=== PATIENT | male | born 1975 ===

== ENCOUNTER 2019-04-11 19:12 | Outpatient (REF) | payer OTHER, SELFPAY ==
[2019-04-11 20:13] LABS: Anion Gap 9.1 mmol/L (3-11); BUN 11 mg/dL (7-18); CO2 26.9 mmol/L (21.0-32.0); CREATININE 1.01 mg/dL (0.70-1.30); Calcium 8.6 mg/dL (8.5-10.1); Calculated LDL 190 mg/dL (<100); Chloride 103 mmol/L (98-107); Cholesterol 253 mg/dL (<200); Glucose 147 mg/dL (74-106); HDL Cholesterol 34 mg/dL (40-60); Sodium 139 mmol/L (136-145); Triglyceride 145 mg/dL (<150)
== END 2019-04-11 19:32 ==
LOC: NCHCN 19:12
PROVIDERS: PCP Physician Assistant; Visit Provider Nurse Practitioner Family
DX: I10 Essential (primary) hypertension (principal); E78.5 Hyperlipidemia, unspecified
CPT/HCPCS: 80048; 80061

== ENCOUNTER 2019-08-17 11:55 | Outpatient (REF) | payer OTHER, SELFPAY ==
[2019-08-17 20:46] LABS: ALT 35 U/L (16-63); AST 23 U/L (15-37); Creatine Kinase 205 U/L (39-308)
[2019-08-17 21:24] LABS: Calculated LDL 87 mg/dL (<100); Cholesterol 138 mg/dL (<200); HDL Cholesterol 32 mg/dL (40-60); Triglyceride 98 mg/dL (<150)
== END 2019-08-17 12:15 ==
LOC: NCHCN 11:55
PROVIDERS: PCP Physician Assistant; Visit Provider Nurse Practitioner Family
DX: E78.5 Hyperlipidemia, unspecified (principal); I10 Essential (primary) hypertension
CPT/HCPCS: 80061; 82550; 84450; 84460

== ENCOUNTER 2020-06-27 21:14 | Outpatient (REF) | payer SELFPAY ==
[2020-06-27 16:19] LABS: Hemoglobin A1C 6.6 % (<5.7)
[2020-06-27 16:22] LABS: ALT 34 U/L (16-63); AST 19 U/L (15-37); Alkaline Phosphatase 83 U/L (46-116); Anion Gap 9.8 mmol/L (3-11); BUN 15 mg/dL (7-18); Bilirubin, Total 0.5 mg/dL (0.2-1.0); CO2 28.2 mmol/L (21.0-32.0); CREATININE 1.2 mg/dL (0.70-1.30); Calcium 9.3 mg/dL (8.5-10.1); Chloride 104 mmol/L (98-107); Glucose 147 mg/dL (74-106); Sodium 142 mmol/L (136-145); Total Protein 7.4 g/dL (6.4-8.2)
== END 2020-06-27 21:15 | disposition home or self-care (01) ==
LOC: NCHCN 21:14
PROVIDERS: PCP Physician Assistant; Visit Provider Nurse Practitioner Family
DX: I10 Essential (primary) hypertension (principal); E11.9 Type 2 diabetes mellitus without complications
CPT/HCPCS: 80053; 83036

== ENCOUNTER 2021-05-22 10:59 | Outpatient (REF) | payer OTHER, SELFPAY ==
[2021-05-22 22:21] LABS: ALT 32 U/L (16-63); AST 18 U/L (15-37); Alkaline Phosphatase 101 U/L (46-116); Anion Gap 8.8 mmol/L (3-11); BUN 13 mg/dL (7-18); Bilirubin, Total 0.3 mg/dL (0.2-1.0); CO2 26.2 mmol/L (21.0-32.0); CREATININE 1.1 mg/dL (0.70-1.30); Calcium 8.9 mg/dL (8.5-10.1); Calculated LDL 197 mg/dL (<100); Chloride 105 mmol/L (98-107); Cholesterol 266 mg/dL (<200); Glucose 155 mg/dL (74-106); HDL Cholesterol 37 mg/dL (40-60); Potassium 4.3 mmol/L (3.5-5.1); Sodium 140 mmol/L (136-145); Total Protein 7.8 g/dL (6.4-8.2); Triglyceride 163 mg/dL (<150)
[2021-05-22 23:10] LABS: COMMENT (LAB VIEW ONLY) 255.36 mg/dL; Microalb ug/mg Crea 9.7 ug/mg Cr
== END 2021-05-22 11:00 | disposition home or self-care (01) ==
LOC: NCHCN 10:59
PROVIDERS: PCP Physician Assistant; Visit Provider Nurse Practitioner Family
DX: E11.9 Type 2 diabetes mellitus without complications (principal); I10 Essential (primary) hypertension; E78.5 Hyperlipidemia, unspecified
CPT/HCPCS: 80053; 80061; 82043; 82570